=== PATIENT | female | born 1955 | race Caucasian/White ===

== ENCOUNTER → 2019-01-17 | Outpatient (CLI) | payer BC ==
--- NOTE | 2019-01-18 10:17 | Diagnostic Imaging Report ---
Exam: Bone mineral density study. History: Osteopenia. Comparison: None Discussion: Evaluation of the left hip and lumbar spine was performed utilizing DEXA Hologic bone densitometer. The study is technically adequate. Left hip total bone mineral density: 0.827gm/cm2, T-score is -0.9, Z-score is 0.2. Left hip femoral neck bone mineral density: 0.725gm/cm2, T-score is -1.1, Z-score is 0.4. Lumbar spine total bone mineral density:1.093gm/cm2, T-score is0.4, Z-score is 2.1. Impression: 1. Osteopenia of the left hip, fracture risk is increased 2. Normal bone mineral density of the lumbar spine, fracture risk is not increased. Least significant change (LSC) for bone mineral density as provided by tobacco curer is 0.023 g/cm2 for lumbar spine and 0.027 g/cm2 for total hip. 10 -year fracture risk per WHO Fracture Risk Assessment Tool (FRAX) for: Major osteoporotic fracture is 6.9% Hip fracture is 0.5% The above fracture probability is calculated for an untreated patient. Fracture probably may be lower if the patient has received treatment. All treatment decisions require clinical judgment and consideration of individual patient factors, including patient preferences, comorbidities, previous drug use and risk factors not captured in the FRAX model (e.g. frailty, falls, vitamin D deficiency, increased bone turnover, interval significant decline in BMD). The patient's fracture risk is compared to an age-matched control. Medical evaluation for secondary causes of low bone bone mineral density may be appropriate. Correlate clinically for the necessity and timing of the next bone mineral density study. Signed by: Dr. Shankar Cassidy M.D. on 01/18/2019 10:14 AM
== END ==
LOC: MAMMO 16:08
PROVIDERS: ATTEND Internal Medicine
DX: Z12.31 Encounter for screening mammogram for malignant neoplasm of breast (principal); Z13.820 Encounter for screening for osteoporosis
CPT/HCPCS: 77067; 77080

== ENCOUNTER → 2019-03-07 | Outpatient (CLI) | payer BC ==
--- NOTE | 2019-03-08 08:23 | Diagnostic Imaging Report ---
#[id number] - MGDXLT #UNILATERAL LEFT DIGITAL DIAGNOSTIC MAMMOGRAM WITH SPOT COMPRESSION: 03/07/2019 Comparison is made to exams dated: 01/17/2019 mammogram and 03/07/2019 ultrasound - [facility]. The tissue of the left breast is heterogeneously dense. This may lower the sensitivity of mammography. There is a 1 cm oval mass in the left breast at 12 o'clock anterior depth. This is seen in additional views. There also is a 1 cm oval mass with an obscured margin in the left breast central to the nipple middle depth. No other significant masses or calcifications are seen in the breast. IMPRESSION: INCOMPLETE: NEEDS ADDITIONAL IMAGING EVALUATION The 1 cm oval mass in the left breast at 12 o'clock anterior depth is indeterminate. An ultrasound is recommended. The 1 cm oval mass in the left breast central to the nipple middle depth is indeterminate. An ultrasound is recommended. See the report for ultrasound performed later the same day for additional details. ETHEL SANCHES M.D. ct/:03/07/2019 10:16:32 Hand Icer: Elizabeth AMAYA(R)(Ayah), [facility] letter sent: Additional Imaging Needed Mammogram BI-RADS: 0 Indeterminate
--- NOTE | 2019-03-08 08:23 | Diagnostic Imaging Report ---
#[id number] - USBRELIMLT ULTRASOUND OF THE LEFT BREAST : 03/07/2019 Comparison is made to exams dated: 03/07/2019 mammogram and 01/17/2019 mammogram - [facility]. Real-time ultrasound was performed on the left breast. There is a 9 mm oval mass with a lobulated margin in the left breast at 12 o'clock anterior depth 3 cm from the nipple. This oval mass is hypoechoic. This correlates with mammography findings. There also is a benign 9 mm oval cyst in the left breast central to the nipple middle depth. This oval cyst is anechoic. This correlates with mammography findings. IMPRESSION: SUSPICIOUS OF MALIGNANCY - FOLLOW-UP RECOMMENDED The 9 mm oval mass in the left breast at 12 o'clock anterior depth is at a low suspicion for malignancy. An ultrasound guided biopsy is recommended. The 9 mm oval cyst in the left breast central to the nipple middle depth is benign. A phone call was made to the physician's office. The findings were discussed with the patient. ETHEL SANCHES M.D. ct/:03/07/2019 10:21:53 D[employer] House Helper: VY BALES [facility], [facility] letter sent: Biopsy Required Ultrasound BI-RADS: 4a Suspicious abnormality - low suspicion for malignancy
== END ==
LOC: MAMMO 08:12
PROVIDERS: ATTEND Internal Medicine
DX: N63.20 Unspecified lump in the left breast, unspecified quadrant (principal)

== ENCOUNTER → 2019-11-15 | Day surgery (SDC) | payer MEDICARE, OTHER ==
--- NOTE | 2019-11-11 17:16 | Diagnostic Imaging Report ---
EXAMINATION: o INDICATION: Preop partial mastectomy ^[id number] ^[id number] ^PRE-OP COMPARISON: None FINDINGS: PA and lateral views TUBES and LINES: None. LUNGS: Mild hyperinflation suggestive of small airways disease. There is no evidence of pneumonia or pulmonary edema. PLEURA: No pleural effusion or pneumothorax. Central eventration of the right diaphragm. HEART AND MEDIASTINUM: The cardiomediastinal silhouette is unremarkable.. BONES AND SOFT TISSUES: Mild generative changes of the cervical and thoracic spine. No focal osseous lesions. Soft tissues are unremarkable. UPPER ABDOMEN: Laparoscopic gastric band is partially imaged due to underpenetration of the images and [id number]. IMPRESSION: Mild pulmonary hyperinflation suggestive of small airways disease. No acute cardiopulmonary process. Signed by: Dr. Valerie Santacruz MD on 11/11/2019 5:13 PM
[~2019-11-15] MED LIST: ATORVASTATIN CA20 MG PO; BUPIVACAINE 0.25%/EPI 30ML SDV INJ ONE; DEXAMETHASONE SOD PHOS INJ 4 MG/ML VIAL ONE; FENTANYL CITRATE/PF 100MCG/2 ML INJ ONE; GABAPENTIN300 MG PO; LEVOTHYROXINE88 MCG PO; LIDOCAINE HCL 2% LOCAL INJ 5 ML SDV VIAL INJ ONE; MIDAZOLAM HCL 2 MG/2 ML VIAL ONE; ONDANSETRON HCL INJ 2MG/ML 2ML 2 MG/ML VIAL ONE; PROPOFOL IV EMULSION 10 MG/ML 20 ML VIAL ONE; SEVOFLURANE INHAL SOLN 250 ML PEN BTL ONE; VITAMIN D3250 MCG PO
--- NOTE | 2019-11-15 13:23 | Operative Report ---
DATE OF PROCEDURE: 11/15/2019 SURGEON: Emre Hu MD PREOPERATIVE DIAGNOSIS: Suspicious mass of the left breast. POSTOPERATIVE DIAGNOSIS: Suspicious mass of the left breast. OPERATION PERFORMED: Left partial mastectomy with preoperative ultrasound-guided needle localization and intraoperative specimen mammography. ANESTHESIA: General. COMPLICATIONS: None. ESTIMATED BLOOD LOSS: Minimal. DESCRIPTION OF PROCEDURE: The patient was lying in bed in the supine position under good general anesthesia after having undergone a needle localization of the suspicious area of the left breast. The left breast was then prepped with Betadine solution and draped in the usual manner. The area overlying the mass was then infiltrated with 0.25% Marcaine solution. An incision was made, carried down through the subcutaneous tissue. The wire was then identified and followed to the area in question. The area in question was then encircled with normal tissue all the way around and totally and completely removed. The specimen was then sent for specimen mammography, which confirmed the fact that the area in question was included in this specimen. The whole area was then thoroughly irrigated. Perfect hemostasis was ascertained. The breast tissue was then reapproximated with interrupted sutures of 2-0 chromic, and the skin was closed with subcuticular 5-0 Vicryl. Benzoin, Steri-Strips, and dressings were applied. The sponge, lap, and needle count was correct. The patient tolerated the procedure well and returned to the recovery room in stable condition. Emre Hu MD JLR/MODL /[id number]
[2019-11-15 13:25] VITALS: BP 122/78
--- NOTE | 2019-11-20 08:10 | Diagnostic Imaging Report ---
#[id number] - BRSPECLT SPECIMEN LEFT BREAST: 11/15/2019 Correlation is made to exam dated: 11/15/2019 localization - [facility]. A specimen was imaged for the abnormality located in the left breast at [address] o[address] Hu was notified of the results in the operating room. IMPRESSION: SPECIMEN The imaged specimen includes the abnormality and the prior biopsy marker. Follow-up with ACR/ACS guidelines. LUNA LAWRENCE M.D. kw/:11/19/2019 14:29:09 [place]: Elizabeth BRADLEY)(M), [facility]
--- NOTE | 2019-11-20 08:10 | Diagnostic Imaging Report ---
#[id number] - MGDXLT #UNILATERAL LEFT DIGITAL DIAGNOSTIC MAMMOGRAM POST-PROCEDURE IMAGING FOR MARKER PLACEMENT: 11/15/2019 Comparison is made to exams dated: 11/15/2019 localization, 03/26/2019 ultrasound biopsy and 03/26/2019 mammogram - [facility]. The tissue of the left breast is heterogeneously dense. This may lower the sensitivity of mammography. The localization wire is confirmed at the location of the previously described lesion and associated biopsy marker. IMPRESSION: POST PROCEDURE MAMMOGRAM FOR MARKER PLACEMENT The localization wire is confirmed at the location of the previously described lesion and associated biopsy marker. LUNA LAWRENCE M.D. kw/:11/19/2019 14:31:12 [employer] Pin Set[employer] Installer: Elizabeth AMAYA(R)(M), [facility] Mammogram BI-RADS: Post-procedure mammogram for marker placement
--- NOTE | 2019-11-20 08:10 | Diagnostic Imaging Report ---
#[id number] - USNEEDLOC ULTRASOUND GUIDED WIRE LOCALIZATION LEFT BREAST WITH POST MAMMOGRAPHIC IMAGIN11/15/2019 Correlation is made to exams dated: 03/26/2019 ultrasound biopsy, 03/26/2019 mammogram, 03/07/2019 ultrasound, 03/07/2019 mammogram and 01/17/2019 mammogram - [facility]. A wire localization using ultrasound guidance was performed for the circumscribed oval mass located in the left breast at 12 o'clock anterior depth. This was described on the previous mammography and ultrasound reports. The skin was prepped in the usual manner. A wire was inserted into the targeted area under ultrasound guidance. Post placement mammographic imaging was obtained. IMPRESSION: WIRE LOCALIZATION Wire localization for the mass in the left breast at 12 o'clock anterior depth was successful. Waiting for pathology results. A final report will be issued when these become available. Follow-up with ACR/ACS guidelines. LUNA mckoy/felicity:11/19/2019 14:23:45 Electrical Tester: VY BALES [facility], [facility]
== END | disposition home or self-care (01) ==
LOC: OR 07:00
PROVIDERS: ATTEND Surgery
DX: D24.2 Benign neoplasm of left breast (principal); G47.33 Obstructive sleep apnea (adult) (pediatric); I10 Essential (primary) hypertension; E03.9 Hypothyroidism, unspecified; Z01.812 Encounter for preprocedural laboratory examination; Z01.818 Encounter for other preprocedural examination; Z11.59 Encounter for screening for other viral diseases
CPT/HCPCS: 19301; 71046; 76098; 76942; 77065; 88307; 88342; J1100; J2001; J2250; J2405; J2704; J3010; U0002

== ENCOUNTER → 2019-12-03 | Outpatient (CLI) | payer MEDICARE, OTHER ==
[~2019-12-03] MED LIST changes: -BUPIVACAINE 0.25%/EPI 30ML SDV INJ ONE; -DEXAMETHASONE SOD PHOS INJ 4 MG/ML VIAL ONE; -FENTANYL CITRATE/PF 100MCG/2 ML INJ ONE; -LIDOCAINE HCL 2% LOCAL INJ 5 ML SDV VIAL INJ ONE; -MIDAZOLAM HCL 2 MG/2 ML VIAL ONE; -ONDANSETRON HCL INJ 2MG/ML 2ML 2 MG/ML VIAL ONE; -PROPOFOL IV EMULSION 10 MG/ML 20 ML VIAL ONE; -SEVOFLURANE INHAL SOLN 250 ML PEN BTL ONE
== END ==
LOC: CARD 14:41
PROVIDERS: ATTEND Surgery
DX: R42 Dizziness and giddiness (principal)
CPT/HCPCS: 93880

== ENCOUNTER → 2021-03-16 | Outpatient (CLI) | payer MEDICARE, OTHER | LOC: MAMMO 15:24 | PROVIDERS: ATTEND Internal Medicine | DX: Z12.31 Encounter for screening mammogram for malignant neoplasm of breast (principal); M85.88 Other specified disorders of bone density and structure, other site | CPT/HCPCS: 77067; 77080 ==

== ENCOUNTER → 2021-04-15 | Outpatient (CLI) | payer MEDICARE, OTHER | LOC: US 13:53 | PROVIDERS: ATTEND Internal Medicine | DX: R92.2 Inconclusive mammogram (principal) ==